=== PATIENT | male | born 1995 | race Caucasian/White ===

== ENCOUNTER 2021-01-11 14:48 | Outpatient (RCR) | payer OTHER | END 2021-02-12 | disposition home or self-care (01) | LOC: WSOH | DX: S80.02XA Contusion of left knee, initial encounter (principal); Z87.891 Personal history of nicotine dependence; Z79.899 Other long term (current) drug therapy; Y99.0 Civilian activity done for income or pay | CPT/HCPCS: 24091; A6549 ==